=== PATIENT | female | born 1970 ===

== ENCOUNTER 2024-12-06 11:22 | Outpatient (AMB) | payer MEDICARE, MEDICAID, SELFPAY ==
--- NOTE | 2024-12-06 11:26 | A.OFFVIS_ITS ---
Intake Visit Reasons: 6 mnts for DUTTA Allergies No Known Allergies Allergy (Verified 12/06/24 11:30) Medication List - Last Reconciled 12/06/24 by Ambreen Parra CNP amitriptyline 150 mg PO BEDTIME aspirin 81 mg PO DAILY bupropion HCl XL 150 mg PO QAM cetirizine 10 mg PO DAILY PRN diclofenac sodium 75 mg PO BID duloxetine 60 mg PO BID famotidine 20 mg PO BID folic acid 1 mg PO DAILY gabapentin 800 mg PO BID golimumab (Simponi) 100 mg subcut Q4W methotrexate sodium 7.5 mg PO 2XW HPI Comments Details: 54-year-old woman who presented to [facility] ER on 08/12/2023 and 08/14/2023 with numbness and weakness to one side of her body, which she believes was the right side, however, some medical records state it was the left side. Stroke work up was negative. Echocardiogram done on 08/12/2023 was suggestive of small PFO. She saw wind farm designer who reviewed it afterwards and was in agreement. She has been on baby aspirin with no recurrence, but gets some periods of palpitations. She was doing okay. Headaches were better with amitriptyline. No medication side effects. Ibuprofen as needed helps. No further episodes of numbness and weakness. Sleep was okay for the most part. She had some generalized body pains that were worse with colder weather. She was walking, doing yoga, caring for dogs and chickens, and had grandson who started pre-K this year. [facility] Medical History (Updated 12/06/24 @ 11:30 by Ambreen Parra CNP) GERD (gastroesophageal reflux disease) Depression Rheumatoid arthritis TIA (transient ischemic attack) Insomnia Tension headache Review of Systems Const Denies chills, Denies daytime sleepiness, Reports difficulty sleeping, Denies fatigue, Denies fever(s), Denies frequent falls, Reports headache(s), Denies increased appetite, Denies poor appetite, Denies snoring, Denies weakness, Denies weight gain and Denies weight loss Eyes Denies loss of vision ENT Denies vertigo, Denies dizziness, Reports headache(s) and Denies neck pain Card Denies chest pain at rest, Denies chest pain with activity, Denies syncope, Denies leg edema, Denies palpitations, Denies dyspnea and Denies dyspnea on exertion Resp Denies cough, Denies dyspnea, Denies dyspnea on exertion and Denies snoring GI Denies abdominal pain, Denies constipation, Denies heartburn, Denies diarrhea and Denies nausea Denies urinary frequency, Denies urinary incontinence and Denies urinary urgency Musc Denies abnormal gait, Denies back pain, Denies myalgias, Reports arthralgias, Denies neck pain, Denies numbness and Denies tingling Neuro Denies abnormal gait, Denies vertigo, Denies dizziness, Denies syncope, Denies frequent falls, Reports headache(s), Denies lack of coordination, Denies loss of vision, Denies memory loss, Denies numbness, Denies Other visual disturbances, Denies restless legs, Denies seizure-like activity, Denies tingling, Denies paresthesias, Denies tremor(s) and Denies weakness Psych Denies anxiety, Denies depression, Denies auditory hallucinations, Denies memory loss and Denies visual hallucinations Endo Denies fatigue and Denies palpitations Physical Exam Const Other: General Appearance:? normal, in no acute distress. Heart:? S1, S2 normal, no murmurs. Lungs:? clear anteriorly and posteriorly. Musculoskeletal:? normal. Extremities:? no edema. Psych:? alert, oriented, cognitive function intact, cooperative with exam. Neuro Other: Abnormal Neurological Findings:?Submaximal effort on voluntary motor testing. Mental Status: alert and oriented X 3. Normal attention, orientation, memory, and affect. Cranial Nerves: Pupils are equal, round, and reactive to light. External ocular muscles are intact. Visual jon are full, no ptosis. Face is symmetrical, no facial weakness or droop. Facial sensations are normal. Tongue protrudes in midline. Palate elevates symmetrically. Shoulder shrugging is normal Motor Examination: As above, otherwise normal muscle tone, bulk and strength. No atrophy or fasciculations. No drift of the extended upper extremities. DTR 2+. Plantars are flexor. Sensory Exam: Normal light touch, temperature, pinprick, vibration, and joint- position sensations. Rhomberg sign is absent. Coordination: No ataxia. No titubation. Gait Exam: Within normal limits. Cerebellar Signs: [id number] is okay. Extrapyramidal System: No tremor, rigidity with normal facial expressions. No bradykinesia. No bradyphrenia. Normal arm swing and posture. No propulsion or retropulsion. Speech: Normal. No dysphasia or dysarthria. Assessment & Plan Assessment & Plan (1) Tension headache: Code(s): G44.209 - Tension-type headache, unspecified, not intractable Category: Medical Plan: Continue amitriptyline 100mg 1.5 tablets at bedtime. (2) Insomnia: Code(s): G47.00 - Insomnia, unspecified Category: Medical Qualifiers: Insomnia type: unspecified Qualified Code(s): G47.00 - Insomnia, unspecified Plan: Amitriptyline may also help with sleep. (3) History of TIA (transient ischemic attack): Code(s): Z86.73 - Personal history of transient ischemic attack (TIA), and cerebral infarction without residual deficits Category: Medical Plan . Medications: Changed From amitriptyline 150 mg PO BEDTIME To amitriptyline 150 mg (1.5 x 100 mg) PO BEDTIME 135 tabs 1RF 90 days Coding Level of Care Code Est Pt Level 4 (55573) Diagnoses Tension headache G44.209 Insomnia, unspecified type G47.00 Insomnia type: unspecified History of TIA (transient ischemic attack) Z86.73
== END 2024-12-06 11:38 | disposition home or self-care (01) ==
LOC: HO.HSM 11:23
PROVIDERS: PCP Internal Medicine; Visit Provider Registered Nurse
DX: G44.209 Tension-type headache, unspecified, not intractable (principal); G47.00 Insomnia, unspecified; Z86.73 Personal history of transient ischemic attack (TIA), and cerebral infarction without residual deficits
CPT/HCPCS: 99214

== ENCOUNTER → 2024-12-06 11:22 | Outpatient (BNVA) | payer MEDICARE, MEDICAID, SELFPAY | PROVIDERS: PCP Internal Medicine; Visit Provider Registered Nurse | DX: G47.00 Insomnia, unspecified (principal); Z86.73 Personal history of transient ischemic attack (TIA), and cerebral infarction without residual deficits; G44.209 Tension-type headache, unspecified, not intractable | CPT/HCPCS: 99212 ==